=== PATIENT | male | born 1930 | race Caucasian/White ===

== ENCOUNTER 2016-08-30 16:22 | Inpatient (IN) | payer MEDICARE ==
[~2016-08-30] VITALS: Ht 175.3 cm; Wt 104.8 kg
[~2016-08-30 16:22] MED LIST: AMLO10TA2 PO; AMLO5TAB2 PO; ASPI-515 PO; CIPR500T87 PO; OXYBUTYNIN PO
[2016-08-30 16:55] LABS: ASPARTATE AMINO TRANSFERASE 10 U/L (15-37); BLOOD UREA NITROGEN 16 mg/dL (7-18)
[2016-08-30 17:15] LABS: MONOS WITH VACUOLES 1+
[2016-08-30] MEDS ORDERED: BACITRACIN ZINC OINT 500U/GM, 0.9 GM ONE (17:39)
[2016-08-30] MEDS ORDERED: CEFTRIAXONE PMX 1GM/50ML 50 ML IV ONE (20:00)
[2016-08-30] MEDS ORDERED: SODIUM CHLORIDE FLUSH 10ML SYR IVF ONE (20:00)
[2016-08-30] MEDS ORDERED: AZITHROMYCIN 500 MG in SODIUM CHLORIDE 0.9% 250 ML IV ONE (20:00)
[2016-08-30] MEDS ORDERED: CEFTRIAXONE PMX 1GM/50ML 50 ML ONE (20:21)
[2016-08-30 21:15] VITALS: BP 131/77
[2016-08-30] MEDS ORDERED: ONDANSETRON 2MG/ML, 2ML IVP PRN (21:30)
[2016-08-30] MEDS ORDERED: POLYETHYLENE GLYCOL 17 GM PACKET PO PRN (21:30)
[2016-08-30] MEDS ORDERED: ACETAMINOPHEN 325 MG TABLET PO PRN (21:30)
[2016-08-30] MEDS ORDERED: BISACODYL 10 MG SUPP PR PRN (21:30)
[2016-08-30] MEDS: SODIUM CHLORIDE 0.9% 1,000 ML IV SCH (22:52)
[2016-08-30] MEDS: AZITHROMYCIN 500 MG in SODIUM CHLORIDE 0.9% 250 ML IV SCH (22:52)
[2016-08-30] MEDS: HEPARIN 5,000 UNITS/ML, 1ML SQ SCH (22:53)
[2016-08-31 02:50] VITALS: BP 134/68
[2016-08-31] MEDS: HEPARIN 5,000 UNITS/ML, 1ML SQ SCH ×4 (06:22→23:08)
[2016-08-31 07:02] VITALS: BP 124/67
[2016-08-31 07:29] LABS: ASPARTATE AMINO TRANSFERASE 10 U/L (15-37); BLOOD UREA NITROGEN 16 mg/dL (7-18)
[2016-08-31] MEDS ORDERED: AMLODIPINE 5 MG TABLET PO SCH (09:00)
[2016-08-31] MEDS: SENNA/DOCUSATE TABLET PO SCH (10:08)
[2016-08-31] MEDS: LISINOPRIL 10 MG TABLET PO SCH (10:08)
[2016-08-31] MEDS: ASPIRIN 81 MG TABLET EC PO SCH (10:08)
[2016-08-31 13:24] VITALS: BP 114/70
[2016-08-31] MEDS: SODIUM CHLORIDE 0.9% 1,000 ML IV SCH (15:09)
[2016-08-31 19:18] VITALS: BP 113/63
[2016-08-31] MEDS: CEFTRIAXONE PMX 1GM/50ML 50 ML IV SCH (22:08)
[2016-08-31] MEDS: AZITHROMYCIN 500 MG in SODIUM CHLORIDE 0.9% 250 ML IV SCH (23:08)
[2016-09-01 02:36] VITALS: BP 125/77
[2016-09-01] MEDS: HEPARIN 5,000 UNITS/ML, 1ML SQ SCH ×4 (05:43→22:49)
[2016-09-01 06:03] LABS: BLOOD UREA NITROGEN 15 mg/dL (7-18)
[2016-09-01 07:33] VITALS: BP 119/77
[2016-09-01] MEDS: ASPIRIN 81 MG TABLET EC PO SCH (08:32)
[2016-09-01] MEDS: LISINOPRIL 10 MG TABLET PO SCH (08:32)
[2016-09-01] MEDS: SENNA/DOCUSATE TABLET PO SCH (08:33)
[2016-09-01 13:26] VITALS: BP 126/62
[2016-09-01 20:48] VITALS: BP 120/77
[2016-09-01] MEDS: CEFTRIAXONE PMX 1GM/50ML 50 ML IV SCH (21:20)
[2016-09-01] MEDS: AZITHROMYCIN 500 MG in SODIUM CHLORIDE 0.9% 250 ML IV SCH (22:49)
[2016-09-02 03:39] VITALS: BP 133/71
[2016-09-02] MEDS: HEPARIN 5,000 UNITS/ML, 1ML SQ SCH ×2 (06:00→15:52)
[2016-09-02 07:42] VITALS: BP 144/75
[2016-09-02] MEDS: ASPIRIN 81 MG TABLET EC PO SCH (08:50)
[2016-09-02] MEDS: LISINOPRIL 10 MG TABLET PO SCH (08:51)
[2016-09-02] MEDS: SENNA/DOCUSATE TABLET PO SCH (08:51)
[2016-09-02] MEDS ORDERED: CEFDINIR 300 MG CAPSULE PO SCH (09:00)
[2016-09-02] MEDS ORDERED: AZITHROMYCIN 250 MG TABLET PO SCH (09:00)
[2016-09-02] MEDS ORDERED: CEFD300C37 PO ×2 (13:08→17:29)
[2016-09-02] MEDS ORDERED: AZIT250T89 PO ×2 (13:08→17:29)
[2016-09-02] MEDS ORDERED: LISI-167 PO (13:08)
[2016-09-02 17:28] VITALS: BP 139/75
[2016-09-02] MEDS ORDERED: FLUT1AER INH (17:50)
== END 2016-09-02 17:48 | disposition home or self-care (01) | DRG 189 ==
LOC: ED 19:54 → EDIP 20:20 → 3NW 21:29 → 3NE 08-31 18:31
PROVIDERS: ADMIT Internal Medicine; ATTEND Internal Medicine
DX: J96.01 Acute respiratory failure with hypoxia (principal); J18.9 Pneumonia, unspecified organism; J44.0 Chronic obstructive pulmonary disease with (acute) lower respiratory infection; E44.0 Moderate protein-calorie malnutrition; R65.10 Systemic inflammatory response syndrome (SIRS) of non-infectious origin without acute organ dysfunction; D64.9 Anemia, unspecified; E11.9 Type 2 diabetes mellitus without complications; F17.210 Nicotine dependence, cigarettes, uncomplicated; I10 Essential (primary) hypertension; I48.91 Unspecified atrial fibrillation; R29.6 Repeated falls; S09.90XA Unspecified injury of head, initial encounter; S50.319A Abrasion of unspecified elbow, initial encounter; W18.39XA Other fall on same level, initial encounter; Z66 Do not resuscitate; Z79.82 Long term (current) use of aspirin; Z80.9 Family history of malignant neoplasm, unspecified; Z68.34 Body mass index [BMI] 34.0-34.9, adult; Z82.49 Family history of ischemic heart disease and other diseases of the circulatory system; Z86.718 Personal history of other venous thrombosis and embolism; Z86.72 Personal history of thrombophlebitis; Z91.14 Patient's other noncompliance with medication regimen; Z90.49 Acquired absence of other specified parts of digestive tract; Y93.89 Activity, other specified; Y92.89 Other specified places as the place of occurrence of the external cause; Y99.8 Other external cause status
CPT/HCPCS: 36415; 70450; 71020; 72125; 80048; 80053; 81001; 83735; 84100; 85025; 87040; 87070; 87086; 87205; 96365; J0456; J0696; J1644; J7030; J7050

== ENCOUNTER 2016-09-27 16:01 | Inpatient (IN) | payer MEDICARE ==
[~2016-09-27] VITALS: Ht 175.3 cm; Wt 100.9 kg
[~2016-09-27 16:01] MED LIST changes: +AZIT250T89 PO; +CEFD300C37 PO; +FLUT1AER INH; +LISI-167 PO
[2016-09-27] MEDS ORDERED: CEFTRIAXONE PMX 1GM/50ML 50 ML IVPB ONE (17:00)
[2016-09-27] MEDS ORDERED: CEFTRIAXONE PMX 1GM/50ML 50 ML ONE (17:13)
[2016-09-27 17:29] LABS: ASPARTATE AMINO TRANSFERASE 11 U/L (15-37); BLOOD UREA NITROGEN 14 mg/dL (7-18)
[2016-09-27] MEDS ORDERED: SODIUM CHLORIDE 0.9% 1,000 ML IV SCH (17:33)
[2016-09-27] MEDS ORDERED: ONDANSETRON 2MG/ML, 2ML IVPush PRN (18:00)
[2016-09-27] MEDS ORDERED: ONDANSETRON ODT 4 MG PO PRN (18:00)
[2016-09-27 19:50] VITALS: BP 163/72
[2016-09-27] MEDS: ENOXAPARIN 40 MG/0.4 ML SQ SCH (19:56)
[2016-09-28 02:59] VITALS: BP 167/81
[2016-09-28] MEDS ORDERED: PNEUMOCOCCAL 23 VACCINE IM-VACC ONE (03:00)
[2016-09-28 05:21] LABS: BLOOD UREA NITROGEN 12 mg/dL (7-18)
[2016-09-28 05:24] LABS: ASPARTATE AMINO TRANSFERASE 13 U/L (15-37)
[2016-09-28 06:58] VITALS: BP 157/89
[2016-09-28] MEDS: LISINOPRIL 10 MG TABLET PO SCH (09:44)
[2016-09-28] MEDS: ASPIRIN 81 MG TABLET EC PO SCH (09:44)
[2016-09-28 12:10] VITALS: BP 133/74
[2016-09-28 19:32] VITALS: BP 137/82
[2016-09-28] MEDS: ENOXAPARIN 40 MG/0.4 ML SQ SCH (19:42)
[2016-09-29 02:14] VITALS: BP 149/78
[2016-09-29 07:19] VITALS: BP 133/82
[2016-09-29] MEDS: ASPIRIN 81 MG TABLET EC PO SCH (07:20)
[2016-09-29] MEDS: LISINOPRIL 10 MG TABLET PO SCH (07:20)
[2016-09-29 13:14] VITALS: BP 150/74
== END 2016-09-29 14:27 | disposition home or self-care (01) | DRG 884 ==
LOC: ED 17:06 → EDIP 17:07 → ED 17:18 → 3NE 17:48 → DCLOUNGE 09-29 14:15
PROVIDERS: ADMIT Internal Medicine; ATTEND Internal Medicine
DX: R54 Age-related physical debility (principal); J90 Pleural effusion, not elsewhere classified; J98.11 Atelectasis; E44.0 Moderate protein-calorie malnutrition; I10 Essential (primary) hypertension; E11.9 Type 2 diabetes mellitus without complications; I48.91 Unspecified atrial fibrillation; I65.29 Occlusion and stenosis of unspecified carotid artery; J44.9 Chronic obstructive pulmonary disease, unspecified; W19.XXXA Unspecified fall, initial encounter; Z90.49 Acquired absence of other specified parts of digestive tract; Z86.72 Personal history of thrombophlebitis; Z72.0 Tobacco use; Z82.49 Family history of ischemic heart disease and other diseases of the circulatory system; Z68.32 Body mass index [BMI] 32.0-32.9, adult; Z86.718 Personal history of other venous thrombosis and embolism; Z87.01 Personal history of pneumonia (recurrent)
CPT/HCPCS: 36415; 71010; 80053; 81003; 83605; 84145; 85025; 87040; 90732; 93005; 96365; J0696; J1650; J7030

== ENCOUNTER 2016-10-31 08:55 | Emergency (ER) | payer MEDICARE ==
[~2016-10-31] VITALS: Ht 175.3 cm; Wt 100.0 kg
[2016-10-31 09:02] VITALS: BP 117/62
== END 2016-10-31 09:52 | disposition home or self-care (01) ==
LOC: ED 09:31
DX: S01.81XD Laceration without foreign body of other part of head, subsequent encounter (principal); L03.115 Cellulitis of right lower limb; E11.9 Type 2 diabetes mellitus without complications; I48.91 Unspecified atrial fibrillation; I10 Essential (primary) hypertension; J44.9 Chronic obstructive pulmonary disease, unspecified
CPT/HCPCS: 99283

== ENCOUNTER 2017-04-04 18:35 | Inpatient (IN) | payer MEDICARE ==
[~2017-04-04] VITALS: Ht 175.3 cm; Wt 116.4 kg
[2017-04-04 19:24] LABS: HEMATOCRIT 38.8 % (39.2-51.8); HEMOGLOBIN 13.2 g/dL (13.7-18.0); WHITE BLOOD COUNT 14.4 x10^3/uL (3.4-10)
[2017-04-04 19:31] LABS: BLOOD UREA NITROGEN 16 mg/dL (7-18)
[2017-04-04] MEDS ORDERED: CEFTRIAXONE PMX 1GM/50ML 50 ML ONE (20:30)
[2017-04-04] MEDS ORDERED: CEFTRIAXONE PMX 1GM/50ML 50 ML IV ONE (21:00)
[2017-04-04] MEDS ORDERED: AZITHROMYCIN 500 MG in SODIUM CHLORIDE 0.9% 250 ML IV ONE (21:00)
[2017-04-04] MEDS ORDERED: BISACODYL 10 MG SUPP PR PRN (21:30)
[2017-04-04] MEDS ORDERED: DOCUSATE 100 MG CAPSULE PO PRN (21:30)
[2017-04-04] MEDS ORDERED: POLYETHYLENE GLYCOL 17 GM PACKET PO PRN (21:30)
[2017-04-04] MEDS ORDERED: HYDROcodone/APAP 5/325 TABLET PO PRN (21:30)
[2017-04-04] MEDS ORDERED: FUROSEMIDE 40 MG/4 ML IV ONE (21:30)
[2017-04-04] MEDS ORDERED: ONDANSETRON 2MG/ML, 2ML IVPush PRN (21:30)
[2017-04-04] MEDS ORDERED: LABETALOL 5MG/ML, 20ML IVPush PRN (21:30)
[2017-04-04] MEDS: CEFTRIAXONE PMX 1GM/50ML 50 ML IV SCH (21:30)
[2017-04-04] MEDS ORDERED: morphine SULFATE 10 MG/ML, 1ML IVPush PRN (21:30)
[2017-04-04] MEDS ORDERED: ACETAMINOPHEN 325 MG TABLET PO PRN (21:30)
[2017-04-04] MEDS ORDERED: FUROSEMIDE 40 MG/4 ML ONE (21:52)
[2017-04-04 22:58] VITALS: BP 138/89
[2017-04-05] MEDS: DOXYCYCLINE 100 MG in DEXTROSE 5% 250 ML IV SCH ×3 (00:26→23:57)
[2017-04-05] MEDS: ENOXAPARIN 40 MG/0.4 ML SQ SCH ×2 (00:27→20:43)
[2017-04-05 03:17] VITALS: BP 145/69
[2017-04-05 05:34] LABS: HEMATOCRIT 38.3 % (39.2-51.8); HEMOGLOBIN 13.2 g/dL (13.7-18.0); WHITE BLOOD COUNT 12.3 x10^3/uL (3.4-10)
[2017-04-05 05:45] LABS: BLOOD UREA NITROGEN 12 mg/dL (7-18)
[2017-04-05] MEDS: ASPIRIN 81 MG TABLET EC PO SCH (08:58)
[2017-04-05] MEDS: GUAIFENESIN ER 600 MG TABLET PO SCH ×2 (08:58→20:43)
[2017-04-05] MEDS: AMLODIPINE 5 MG TABLET PO SCH (08:58)
[2017-04-05] MEDS: SODIUM CHLORIDE FLUSH 10ML SYR IVF SCH ×2 (09:04→20:43)
[2017-04-05 13:07] VITALS: BP 117/68
[2017-04-05 19:45] VITALS: BP 118/61
[2017-04-05] MEDS: CEFTRIAXONE PMX 1GM/50ML 50 ML IV SCH (20:43)
[2017-04-06 01:47] VITALS: BP 118/64
[2017-04-06 07:45] VITALS: BP 117/65
[2017-04-06] MEDS: SODIUM CHLORIDE FLUSH 10ML SYR IVF SCH ×2 (09:13→21:05)
[2017-04-06] MEDS: AMLODIPINE 5 MG TABLET PO SCH (09:13)
[2017-04-06] MEDS: ASPIRIN 81 MG TABLET EC PO SCH (09:13)
[2017-04-06] MEDS: GUAIFENESIN ER 600 MG TABLET PO SCH ×3 (09:13→21:03)
[2017-04-06] MEDS ORDERED: ALBUTEROL/IPRATROPIUM 2.5MG/0.5MG, 3 ML ONE (09:23)
[2017-04-06] MEDS: DOXYCYCLINE 100 MG in DEXTROSE 5% 250 ML IV SCH (13:17)
[2017-04-06 13:55] VITALS: BP 117/62
[2017-04-06] MEDS: ALBUTEROL/IPRATROPIUM 2.5MG/0.5MG, 3 ML NPPB SCH ×3 (13:55→20:00)
[2017-04-06] MEDS: ENOXAPARIN 40 MG/0.4 ML SQ SCH (21:04)
[2017-04-06] MEDS: CEFTRIAXONE PMX 1GM/50ML 50 ML IV SCH (21:04)
[2017-04-06 21:17] VITALS: BP 115/70
[2017-04-07] MEDS: DOXYCYCLINE 100 MG in DEXTROSE 5% 250 ML IV SCH ×2 (00:19→12:35)
[2017-04-07] MEDS: GUAIFENESIN ER 600 MG TABLET PO SCH ×4 (05:31→21:42)
[2017-04-07 05:37] VITALS: BP 124/63
[2017-04-07 05:56] LABS: HEMATOCRIT 36.5 % (39.2-51.8); HEMOGLOBIN 12.5 g/dL (13.7-18.0); WHITE BLOOD COUNT 9.2 x10^3/uL (3.4-10)
[2017-04-07 06:22] LABS: ASPARTATE AMINO TRANSFERASE 9 U/L (15-37); BLOOD UREA NITROGEN 13 mg/dL (7-18)
[2017-04-07] MEDS: ALBUTEROL/IPRATROPIUM 2.5MG/0.5MG, 3 ML NPPB SCH (07:00)
[2017-04-07 08:52] VITALS: BP 125/61
[2017-04-07] MEDS: SODIUM CHLORIDE FLUSH 10ML SYR IVF SCH ×2 (09:00→21:43)
[2017-04-07] MEDS: ASPIRIN 81 MG TABLET EC PO SCH (09:43)
[2017-04-07] MEDS: AMLODIPINE 5 MG TABLET PO SCH (09:43)
[2017-04-07] MEDS ORDERED: ALBUTEROL/IPRATROPIUM 2.5MG/0.5MG, 3 ML NPPB PRN (11:00)
[2017-04-07 15:15] VITALS: BP 116/64
[2017-04-07] MEDS ORDERED: OMNIPAQUE 350 MG/ML, 100ML BOTTLE ONE (18:01)
[2017-04-07 18:53] VITALS: BP 144/58
[2017-04-07] MEDS: ENOXAPARIN 40 MG/0.4 ML SQ SCH (21:42)
[2017-04-07] MEDS: CEFTRIAXONE PMX 1GM/50ML 50 ML IV SCH (21:42)
[2017-04-08] MEDS: DOXYCYCLINE 100 MG in DEXTROSE 5% 250 ML IV SCH ×2 (00:24→12:35)
[2017-04-08 00:45] VITALS: BP 136/66
[2017-04-08] MEDS: GUAIFENESIN ER 600 MG TABLET PO SCH ×2 (03:22→08:52)
[2017-04-08] MEDS ORDERED: ONDA4TAB13 SL (05:23)
[2017-04-08] MEDS ORDERED: OXYC1TAB7 PO (05:25)
[2017-04-08 07:20] VITALS: BP 125/66
[2017-04-08] MEDS: AMLODIPINE 5 MG TABLET PO SCH (08:52)
[2017-04-08] MEDS: ASPIRIN 81 MG TABLET EC PO SCH (08:52)
[2017-04-08] MEDS: SODIUM CHLORIDE FLUSH 10ML SYR IVF SCH (09:00)
[2017-04-08] MEDS ORDERED: POLY17PO5 PO (10:05)
[2017-04-08] MEDS ORDERED: IPRA3AMP NPPB (10:05)
[2017-04-08] MEDS ORDERED: GUAI600T31 PO (10:05)
[2017-04-08] MEDS ORDERED: POTA20TA6 PO (10:44)
[2017-04-08] MEDS ORDERED: FURO40TA6 PO (10:44)
[2017-04-08] MEDS ORDERED: DOXY100C15 PO (10:50)
[2017-04-08] MEDS ORDERED: CEFD300C37 PO (10:50)
[2017-04-08 12:54] VITALS: BP 138/76
== END 2017-04-08 15:12 | disposition home or self-care (01) | DRG 871 ==
LOC: ED 21:08 → EDIP 21:19 → 4NOR 22:44
PROVIDERS: ADMIT Internal Medicine; ATTEND Internal Medicine
PROC: 0HBRXZZ Excision of Toe Nail, External Approach (ICD-10-PCS; principal; 2017-04-05)
PROC: 0HBRXZZ Excision of Toe Nail, External Approach (ICD-10-PCS; 2017-04-05)
PROC: 0HBRXZZ Excision of Toe Nail, External Approach (ICD-10-PCS; 2017-04-05)
PROC: 0HBRXZZ Excision of Toe Nail, External Approach (ICD-10-PCS; 2017-04-05)
PROC: 0HBRXZZ Excision of Toe Nail, External Approach (ICD-10-PCS; 2017-04-05)
PROC: 0HBRXZZ Excision of Toe Nail, External Approach (ICD-10-PCS; 2017-04-05)
PROC: 0HBRXZZ Excision of Toe Nail, External Approach (ICD-10-PCS; 2017-04-05)
PROC: 0HBRXZZ Excision of Toe Nail, External Approach (ICD-10-PCS; 2017-04-05)
PROC: 0HBRXZZ Excision of Toe Nail, External Approach (ICD-10-PCS; 2017-04-05)
PROC: 0HBRXZZ Excision of Toe Nail, External Approach (ICD-10-PCS; 2017-04-05)
DX: A41.9 Sepsis, unspecified organism (principal); J15.9 Unspecified bacterial pneumonia; J96.00 Acute respiratory failure, unspecified whether with hypoxia or hypercapnia; E43 Unspecified severe protein-calorie malnutrition; E11.51 Type 2 diabetes mellitus with diabetic peripheral angiopathy without gangrene; I11.0 Hypertensive heart disease with heart failure; E11.65 Type 2 diabetes mellitus with hyperglycemia; I50.30 Unspecified diastolic (congestive) heart failure; I48.91 Unspecified atrial fibrillation; D64.9 Anemia, unspecified; B35.1 Tinea unguium; J44.0 Chronic obstructive pulmonary disease with (acute) lower respiratory infection; Z68.37 Body mass index [BMI] 37.0-37.9, adult; E66.9 Obesity, unspecified; F17.200 Nicotine dependence, unspecified, uncomplicated; J32.9 Chronic sinusitis, unspecified; R29.6 Repeated falls; R29.810 Facial weakness; Z66 Do not resuscitate; Z82.49 Family history of ischemic heart disease and other diseases of the circulatory system; Z86.718 Personal history of other venous thrombosis and embolism; Z90.49 Acquired absence of other specified parts of digestive tract
CPT/HCPCS: 36415; 70450; 71010; 71275; 80048; 80053; 81001; 82040; 83605; 83735; 84100; 85025; 87040; 87070; 87086; 87205; 93005; 93306; 93970; 94640; 96365; 96375; J0456; J0696; J1650; J1940; J7060; J7620; Q9967; J7050

== ENCOUNTER 2017-05-28 00:29 | Emergency (ER) | payer MEDICARE ==
[~2017-05-28] VITALS: Ht 175.3 cm; Wt 100.0 kg
[~2017-05-28 00:29] MED LIST changes: +DOXY100C15 PO; +FURO40TA6 PO; +GUAI600T31 PO; +IPRA3AMP NPPB; +ONDA4TAB13 SL; +OXYC1TAB7 PO; +POLY17PO5 PO; +POTA20TA6 PO
[2017-05-28 00:32] VITALS: BP 149/88
[2017-05-28] MEDS ORDERED: SODIUM CHLORIDE 0.9% 1,000 ML IV ONE (00:37)
[2017-05-28] MEDS ORDERED: ONDANSETRON 2MG/ML, 2ML ONE (00:50)
[2017-05-28] MEDS ORDERED: MORPHINE SULFATE 4 MG/ML, 1ML ONE (00:50)
[2017-05-28 00:57] LABS: BASOPHILS # (AUTO) 0.05 x10^3/uL (0-0.1); BASOPHILS % (AUTO) 1 % (0-1); EOSINOPHILS % (AUTO) 7 % (1-7); LYMPHOCYTES # (AUTO) 1.93 x10^3/uL (1-3.4); LYMPHOCYTES % (AUTO) 23 % (22-44); MD NO; MEAN CORPUSCULAR HEMOGLOBIN 30.9 pg (27.5-34.5); MEAN CORPUSCULAR HGB CONC 33.8 g/dL (33.2-36.2); MEAN CORPUSCULAR VOLUME 91.4 fL (81-97); MONOCYTES # (AUTO) 0.78 x10^3/uL (0.2-0.8); MONOCYTES % (AUTO) 9 % (2-9); NEUTROPHILS # (AUTO) 5.18 x10^3/uL (1.8-6.8); NEUTROPHILS % (AUTO) 61 % (42-75); PLATELET COUNT 281 x10^3/uL (130-400); RED BLOOD COUNT 4.56 x10^6/uL (4.38-5.82); RED CELL DISTRIBUTION WIDTH 16.5 % (9.4-14.8)
[2017-05-28] MEDS ORDERED: SODIUM CHLORIDE FLUSH 10ML SYR IVF ONE (01:00)
[2017-05-28] MEDS ORDERED: ONDANSETRON 2MG/ML, 2ML IVPush ONE (01:00)
[2017-05-28] MEDS ORDERED: MORPHINE SULFATE 4 MG/ML, 1ML IVPush PRN (01:00)
[2017-05-28 01:03] LABS: INTERNATIONAL NORMALIZED RATIO 0.92 (0.93-1.1); PROTHROMBIN TIME 9.6 Seconds (9.6-11.5)
[2017-05-28 01:05] LABS: ALBUMIN 3.1 g/dL (3.4-5.0); ANION GAP 6 mmol/L (5-15); CALCIUM 8.2 mg/dL (8.5-10.1); CHLORIDE 107 mmol/L (98-107); CREATININE 1.05 mg/dL (0.7-1.3)
[2017-05-28 01:40] LABS: CULTURE INDICATED? YES; MICROSCOPIC INDICATED
== END 2017-05-29 05:12 ==
LOC: ED 00:41
DX: S27.2XXA Traumatic hemopneumothorax, initial encounter (principal); S22.42XA Multiple fractures of ribs, left side, initial encounter for closed fracture; E11.9 Type 2 diabetes mellitus without complications; I25.10 Atherosclerotic heart disease of native coronary artery without angina pectoris; W01.0XXA Fall on same level from slipping, tripping and stumbling without subsequent striking against object, initial encounter; Y93.01 Activity, walking, marching and hiking; Y92.098 Other place in other non-institutional residence as the place of occurrence of the external cause; Y99.8 Other external cause status
CPT/HCPCS: 36415; 71260; 74177; 80048; 81001; 82040; 85025; 85610; 85730; 87086; 96361; 96374; 96375; 99285; J2405; J7030

== ENCOUNTER 2017-07-30 01:42 | Inpatient (IN) | payer MEDICARE ==
[~2017-07-30] VITALS: Ht 175.3 cm; Wt 101.7 kg
[2017-07-30] MEDS ORDERED: DILTIAZEM 5 MG/ML, 5ML ONE (01:46)
[2017-07-30] MEDS ORDERED: AMLO10TA2 PO (01:58)
[2017-07-30] MEDS ORDERED: DILTIAZEM 5 MG/ML, 5ML IVPush ONE ×2 (02:00→03:00)
[2017-07-30 02:15] LABS: BASOPHILS # (AUTO) 0.01 x10^3/uL (0-0.1); BASOPHILS % (AUTO) 0 % (0-1); EOSINOPHILS # (AUTO) 0.04 x10^3/uL (0-0.4); EOSINOPHILS % (AUTO) 0 % (1-7); LYMPHOCYTES # (AUTO) 1.34 x10^3/uL (1-3.4); LYMPHOCYTES % (AUTO) 12 % (22-44); MD NO; MEAN CORPUSCULAR HEMOGLOBIN 29.7 pg (27.5-34.5); MEAN CORPUSCULAR HGB CONC 32.8 g/dL (33.2-36.2); MEAN CORPUSCULAR VOLUME 90.6 fL (81-97); MEAN PLATELET VOLUME 8.1 fL (7.4-10.4); MONOCYTES # (AUTO) 1.25 x10^3/uL (0.2-0.8); MONOCYTES % (AUTO) 11 % (2-9); NEUTROPHILS # (AUTO) 8.53 x10^3/uL (1.8-6.8); NEUTROPHILS % (AUTO) 76 % (42-75); PLATELET COUNT 425 x10^3/uL (130-400); RED BLOOD COUNT 4.46 x10^6/uL (4.38-5.82); RED CELL DISTRIBUTION WIDTH 15.5 % (9.4-14.8)
[2017-07-30 02:29] LABS: ALANINE AMINOTRANSFERASE 25 U/L (12-78); ALBUMIN 2.3 g/dL (3.4-5.0); ANION GAP 7 mmol/L (5-15); CALCIUM 8.3 mg/dL (8.5-10.1); CHLORIDE 111 mmol/L (98-107); CREATININE 1.17 mg/dL (0.7-1.3)
[2017-07-30 02:33] LABS: ALKALINE PHOSPHATASE 146 U/L (45-117); BILIRUBIN,TOTAL 0.8 mg/dL (0.2-1.0); TOTAL PROTEIN 7.1 g/dL (6.4-8.2); TROPONIN I < 0.015 ng/mL (0.000-0.045)
[2017-07-30] MEDS ORDERED: ONDANSETRON 2MG/ML, 2ML IVPush PRN ×2 (03:00→03:30)
[2017-07-30] MEDS ORDERED: DILTIAZEM 125 MG in SODIUM CHLORIDE 0.9% 100 ML IV PRN (03:00)
[2017-07-30] MEDS ORDERED: DILTIAZEM 125 MG in SODIUM CHLORIDE 0.9% 100 ML IV SCH (03:30)
[2017-07-30] MEDS ORDERED: BISACODYL 10 MG SUPP PR PRN (03:30)
[2017-07-30] MEDS ORDERED: HEPARIN 5,000 UNITS/ML, 1ML SQ SCH (03:30)
[2017-07-30] MEDS ORDERED: DO NOT GIVE XX PRN (03:30)
[2017-07-30] MEDS ORDERED: ACETAMINOPHEN 325 MG TABLET PO PRN (03:30)
[2017-07-30] MEDS ORDERED: OXYcodone IR 5MG TABLET PO PRN (03:30)
[2017-07-30] MEDS ORDERED: ENALAPRILAT 1.25 MG/ML, 2ML IVPush PRN (03:30)
[2017-07-30] MEDS ORDERED: HEPARIN wt. based STROKE protocol IV PRN (03:30)
[2017-07-30] MEDS ORDERED: POLYETHYLENE GLYCOL 17 GM PACKET PO PRN (03:30)
[2017-07-30] MEDS ORDERED: hydrALAzine 20 MG/ML, 1ML IVPush PRN (03:30)
[2017-07-30] MEDS ORDERED: morphine SULFATE 10 MG/ML, 1ML IVPush PRN (03:30)
[2017-07-30 04:13] VITALS: BP 116/70
[2017-07-30] MEDS: CEFTRIAXONE 2 GM in DEXTROSE 5% 50 ML IVPB SCH (05:11)
[2017-07-30] MEDS: HEPARIN 25,000 UNITS/500ML PMX 500 ML IV PRN ×2 (05:19→20:18)
[2017-07-30 05:46] LABS: HEMOGLOBIN A1C 5.7 % (4.2-6.3)
[2017-07-30 05:50] LABS: FREE T4 (FREE THYROXINE) 1.34 ng/dL (0.76-1.46); THYROID STIMULATING HORMONE 2.29 mIU/L (0.358-3.740)
[2017-07-30 07:20] LABS: TROPONIN I < 0.015 ng/mL (0.000-0.045)
[2017-07-30 07:35] VITALS: BP 117/64
[2017-07-30] MEDS ORDERED: LIDOCAINE 1%, 20ML ONE (07:36)
[2017-07-30] MEDS: SENNA/DOCUSATE TABLET PO SCH (07:44)
[2017-07-30 08:14] LABS: MICROSCOPIC INDICATED
[2017-07-30 08:50] LABS: CULTURE INDICATED? NO
[2017-07-30] MEDS: DOXYCYCLINE 100MG TABLET PO SCH ×2 (09:52→20:16)
[2017-07-30 10:58] LABS: TROPONIN I < 0.015 ng/mL (0.000-0.045)
[2017-07-30 11:42] LABS: CLOSTRIDIUM DIFFICILE ANTIGEN NEGATIVE; CLOSTRIDIUM DIFFICILE TOXIN NEGATIVE (Negative)
[2017-07-30] MEDS: METOPROLOL TARTRATE 25 MG TABLET PO SCH ×2 (12:33→18:10)
[2017-07-30 14:40] VITALS: BP 104/65
[2017-07-30] MEDS: DILTIAZEM 125 MG in SODIUM CHLORIDE 0.9% 100 ML IV SCH (16:34)
[2017-07-30 18:10] VITALS: BP 100/63
[2017-07-30 20:15] VITALS: BP 103/70
[2017-07-31] MEDS: METOPROLOL TARTRATE 25 MG TABLET PO SCH ×5 (01:13→22:54)
[2017-07-31 01:14] VITALS: BP 95/64
[2017-07-31] MEDS: DILTIAZEM 125 MG in SODIUM CHLORIDE 0.9% 100 ML IV SCH ×2 (02:00→16:32)
[2017-07-31] MEDS: CEFTRIAXONE 2 GM in DEXTROSE 5% 50 ML IVPB SCH (05:39)
[2017-07-31 07:15] LABS: BASOPHILS # (AUTO) 0.05 x10^3/uL (0-0.1); BASOPHILS % (AUTO) 1 % (0-1); EOSINOPHILS # (AUTO) 0.12 x10^3/uL (0-0.4); EOSINOPHILS % (AUTO) 1 % (1-7); LYMPHOCYTES # (AUTO) 1.09 x10^3/uL (1-3.4); LYMPHOCYTES % (AUTO) 13 % (22-44); MD NO; MEAN CORPUSCULAR HEMOGLOBIN 30.3 pg (27.5-34.5); MEAN CORPUSCULAR HGB CONC 32.9 g/dL (33.2-36.2); MEAN PLATELET VOLUME 8.3 fL (7.4-10.4); MONOCYTES # (AUTO) 0.82 x10^3/uL (0.2-0.8); MONOCYTES % (AUTO) 10 % (2-9); NEUTROPHILS # (AUTO) 6.43 x10^3/uL (1.8-6.8); NEUTROPHILS % (AUTO) 76 % (42-75); PLATELET COUNT 396 x10^3/uL (130-400); RED BLOOD COUNT 4.03 x10^6/uL (4.38-5.82)
[2017-07-31 07:26] LABS: ANION GAP 7 mmol/L (5-15); CALCIUM 7.7 mg/dL (8.5-10.1); CHLORIDE 110 mmol/L (98-107); CHOLESTEROL, TOTAL 120 mg/dL (140-239); TRIGLYCERIDES 124 mg/dL (50-200); VLDL CHOLESTEROL 25 mg/dL (0-25)
[2017-07-31 07:29] LABS: CREATININE 0.95 mg/dL (0.7-1.3)
[2017-07-31 07:30] LABS: ALANINE AMINOTRANSFERASE 21 U/L (12-78); ALKALINE PHOSPHATASE 126 U/L (45-117); BILIRUBIN,TOTAL 0.4 mg/dL (0.2-1.0); HDL CHOL % 20 % (26-37); HDL CHOLESTEROL (DIRECT) 24 mg/dL (40-60); LDL CHOLESTEROL,CALCULATED 71 mg/dL (54-169); TOTAL PROTEIN 6.3 g/dL (6.4-8.2)
[2017-07-31] MEDS: DOXYCYCLINE 100MG TABLET PO SCH ×2 (08:24→21:18)
[2017-07-31] MEDS: SENNA/DOCUSATE TABLET PO SCH (08:25)
[2017-07-31 08:28] VITALS: BP 104/63
[2017-07-31] MEDS ORDERED: DIGOXIN 0.25 MG/ML, 2ML IVPush ONE ×3 (09:30→19:40)
[2017-07-31] MEDS ORDERED: OMNIPAQUE 350 MG/ML, 100ML BOTTLE ONE (13:32)
[2017-07-31] MEDS ORDERED: DIGOXIN 0.25 MG/ML, 2ML ONE (13:35)
[2017-07-31] MEDS: HEPARIN 25,000 UNITS/500ML PMX 500 ML IV PRN (13:42)
[2017-07-31 13:45] VITALS: BP 124/92
[2017-07-31 16:46] VITALS: BP 112/79
[2017-07-31 21:11] VITALS: BP 125/75
[2017-07-31 22:54] VITALS: BP 122/83
[2017-08-01] VITALS (7 sets, daily range): BP systolic 99–139; BP diastolic 60–96
[2017-08-01] MEDS: HEPARIN 25,000 UNITS/500ML PMX 500 ML IV PRN ×2 (03:00→16:15)
[2017-08-01] MEDS ORDERED: DILTIAZEM 125 MG in SODIUM CHLORIDE 0.9% 100 ML IV SCH (03:30)
[2017-08-01] MEDS: CEFTRIAXONE 2 GM in DEXTROSE 5% 50 ML IVPB SCH (04:40)
[2017-08-01] MEDS: METOPROLOL TARTRATE 25 MG TABLET PO SCH ×4 (04:40→22:06)
[2017-08-01 05:01] LABS: BASOPHILS # (AUTO) 0.04 x10^3/uL (0-0.1); BASOPHILS % (AUTO) 1 % (0-1); EOSINOPHILS # (AUTO) 0.19 x10^3/uL (0-0.4); EOSINOPHILS % (AUTO) 3 % (1-7); LYMPHOCYTES # (AUTO) 0.96 x10^3/uL (1-3.4); LYMPHOCYTES % (AUTO) 13 % (22-44); MD NO; MEAN CORPUSCULAR HEMOGLOBIN 32.3 pg (27.5-34.5); MEAN CORPUSCULAR HGB CONC 34.3 g/dL (33.2-36.2); MEAN PLATELET VOLUME 8.5 fL (7.4-10.4); MONOCYTES # (AUTO) 0.78 x10^3/uL (0.2-0.8); MONOCYTES % (AUTO) 10 % (2-9); NEUTROPHILS # (AUTO) 5.63 x10^3/uL (1.8-6.8); NEUTROPHILS % (AUTO) 74 % (42-75); PLATELET COUNT 347 x10^3/uL (130-400); RED BLOOD COUNT 3.82 x10^6/uL (4.38-5.82); RED CELL DISTRIBUTION WIDTH 15.5 % (9.4-14.8)
[2017-08-01 05:10] LABS: ANION GAP 4 mmol/L (5-15); CALCIUM 7.9 mg/dL (8.5-10.1); CHLORIDE 109 mmol/L (98-107); CREATININE 0.91 mg/dL (0.7-1.3)
[2017-08-01] MEDS: DOXYCYCLINE 100MG TABLET PO SCH ×2 (08:36→22:06)
[2017-08-01] MEDS: DIGOXIN 0.125 MG TABLET PO SCH (08:36)
[2017-08-01] MEDS: SENNA/DOCUSATE TABLET PO SCH (08:37)
[2017-08-02 03:06] VITALS: BP 115/73
[2017-08-02] MEDS: METOPROLOL TARTRATE 25 MG TABLET PO SCH ×3 (03:10→21:44)
[2017-08-02] MEDS: HEPARIN 25,000 UNITS/500ML PMX 500 ML IV PRN ×2 (03:11→14:30)
[2017-08-02] MEDS: CEFTRIAXONE 2 GM in DEXTROSE 5% 50 ML IVPB SCH (03:12)
[2017-08-02 07:15] VITALS: BP 110/61
[2017-08-02] MEDS: DOXYCYCLINE 100MG TABLET PO SCH ×2 (08:10→21:44)
[2017-08-02] MEDS: DIGOXIN 0.125 MG TABLET PO SCH (08:10)
[2017-08-02] MEDS: SENNA/DOCUSATE TABLET PO SCH (08:11)
[2017-08-02] MEDS ORDERED: DILTIAZEM 5 MG/ML, 5ML IVPush ONE ×2 (09:00→10:00)
[2017-08-02 13:03] VITALS: BP 124/77
[2017-08-02 13:35] VITALS: BP 119/72
[2017-08-02] MEDS ORDERED: AMIODARONE 900 MG in DEXTROSE 5% 482 ML IV PRN (15:30)
[2017-08-02] MEDS ORDERED: AMIODARONE 150 MG in DEXTROSE 5% 100 ML IV ONE (15:30)
[2017-08-02] MEDS: FILTER 0.22 MICRON FOR AMIODARONE IV PRN (16:11)
[2017-08-02 20:08] VITALS: BP 117/75
[2017-08-03] MEDS: HEPARIN 25,000 UNITS/500ML PMX 500 ML IV PRN ×2 (01:38→13:01)
[2017-08-03] MEDS ORDERED: DILTIAZEM 125 MG in SODIUM CHLORIDE 0.9% 100 ML IV SCH (03:30)
[2017-08-03] MEDS: CEFTRIAXONE 2 GM in DEXTROSE 5% 50 ML IVPB SCH (05:19)
[2017-08-03 05:30] VITALS: BP 128/86
[2017-08-03 07:25] VITALS: BP 154/74
[2017-08-03 07:50] VITALS: BP 121/69
[2017-08-03] MEDS: DOXYCYCLINE 100MG TABLET PO SCH ×2 (07:56→20:36)
[2017-08-03] MEDS: METOPROLOL TARTRATE 25 MG TABLET PO SCH ×2 (07:57→20:36)
[2017-08-03] MEDS: SENNA/DOCUSATE TABLET PO SCH (07:57)
[2017-08-03] MEDS: DIGOXIN 0.125 MG TABLET PO SCH (07:57)
[2017-08-03] MEDS: FUROSEMIDE 40 MG TABLET PO SCH (10:07)
[2017-08-03] MEDS: AMIODARONE 450 MG in DEXTROSE 5% 241 ML IV PRN (13:14)
[2017-08-03 15:30] VITALS: BP 141/77
[2017-08-03] MEDS ORDERED: PROPOFOL 10 MG/ML, 20ML ONE (16:10)
[2017-08-03 18:39] VITALS: BP 136/72
[2017-08-04] MEDS: HEPARIN 25,000 UNITS/500ML PMX 500 ML IV PRN (00:13)
[2017-08-04 00:21] VITALS: BP 144/74
[2017-08-04] MEDS: AMIODARONE 450 MG in DEXTROSE 5% 241 ML IV PRN (02:42)
[2017-08-04] MEDS: FILTER 0.22 MICRON FOR AMIODARONE IV PRN (02:42)
[2017-08-04] MEDS: CEFTRIAXONE 2 GM in DEXTROSE 5% 50 ML IVPB SCH (05:16)
[2017-08-04 05:45] LABS: ANION GAP 6 mmol/L (5-15); CALCIUM 8.3 mg/dL (8.5-10.1); CHLORIDE 104 mmol/L (98-107); CREATININE 0.91 mg/dL (0.7-1.3)
[2017-08-04 09:10] VITALS: BP 141/79
[2017-08-04] MEDS: SENNA/DOCUSATE TABLET PO SCH (09:11)
[2017-08-04] MEDS: DIGOXIN 0.125 MG TABLET PO SCH (09:12)
[2017-08-04] MEDS: DOXYCYCLINE 100MG TABLET PO SCH ×2 (09:12→20:21)
[2017-08-04] MEDS: FUROSEMIDE 40 MG TABLET PO SCH (09:12)
[2017-08-04] MEDS: METOPROLOL TARTRATE 25 MG TABLET PO SCH ×2 (09:12→20:21)
[2017-08-04] MEDS: ENOXAPARIN 60 MG/0.6 ML SQ SCH ×2 (10:46→22:15)
[2017-08-04] MEDS: AMIODARONE 200 MG TABLET PO SCH (10:46)
[2017-08-04 14:48] VITALS: BP 133/68
[2017-08-04 20:20] VITALS: BP 147/80
[2017-08-05 01:15] VITALS: BP 130/63
[2017-08-05] MEDS: CEFTRIAXONE 2 GM in DEXTROSE 5% 50 ML IVPB SCH (05:14)
[2017-08-05 08:00] VITALS: BP 132/63
[2017-08-05] MEDS: SENNA/DOCUSATE TABLET PO SCH (08:02)
[2017-08-05] MEDS: METOPROLOL TARTRATE 25 MG TABLET PO SCH ×2 (08:05→21:35)
[2017-08-05] MEDS: AMIODARONE 200 MG TABLET PO SCH (08:05)
[2017-08-05] MEDS: DIGOXIN 0.125 MG TABLET PO SCH (08:05)
[2017-08-05] MEDS: FUROSEMIDE 40 MG TABLET PO SCH (08:05)
[2017-08-05] MEDS: DOXYCYCLINE 100MG TABLET PO SCH (08:05)
[2017-08-05] MEDS: ENOXAPARIN 60 MG/0.6 ML SQ SCH (10:55)
[2017-08-05 14:00] VITALS: BP 139/70
[2017-08-05 18:46] VITALS: BP 146/64
[2017-08-05] MEDS ORDERED: DOXYCYCLINE 100MG TABLET PO SCH (21:00)
[2017-08-05] MEDS: APIXABAN 5 MG TABLET PO SCH (21:37)
[2017-08-06 00:39] VITALS: BP 154/71
[2017-08-06 07:06] VITALS: BP 128/73
[2017-08-06] MEDS: SENNA/DOCUSATE TABLET PO SCH (09:51)
[2017-08-06] MEDS: AMIODARONE 200 MG TABLET PO SCH (09:51)
[2017-08-06] MEDS: FUROSEMIDE 40 MG TABLET PO SCH (09:51)
[2017-08-06] MEDS: APIXABAN 5 MG TABLET PO SCH (09:52)
[2017-08-06] MEDS: METOPROLOL TARTRATE 25 MG TABLET PO SCH (09:52)
[2017-08-06] MEDS ORDERED: APIX5TAB PO (11:45)
[2017-08-06] MEDS ORDERED: AMIO200T42 PO (11:45)
[2017-08-06] MEDS ORDERED: ACET325T14 PO (11:45)
[2017-08-06] MEDS ORDERED: SENN1TAB7 PO (11:45)
[2017-08-06] MEDS ORDERED: FURO40TA6 PO (11:45)
[2017-08-06] MEDS ORDERED: METO25TA35 PO (11:45)
[2017-08-06 15:16] VITALS: BP 138/77
== END 2017-08-06 15:40 | DRG 308 ==
LOC: ED 02:03 → EDIP 03:24 → 5SO 03:58
PROVIDERS: ADMIT Internal Medicine; ATTEND Family Medicine
PROC: 0W9B3ZZ Drainage of Left Pleural Cavity, Percutaneous Approach (ICD-10-PCS; 2017-07-30)
PROC: B24BZZ4 Ultrasonography of Heart with Aorta, Transesophageal (ICD-10-PCS; 2017-08-03)
PROC: 5A2204Z Restoration of Cardiac Rhythm, Single (ICD-10-PCS; principal; 2017-08-03 12:30)
DX: I48.91 Unspecified atrial fibrillation (principal); J18.9 Pneumonia, unspecified organism; E44.0 Moderate protein-calorie malnutrition; D68.69 Other thrombophilia; E11.51 Type 2 diabetes mellitus with diabetic peripheral angiopathy without gangrene; I82.622 Acute embolism and thrombosis of deep veins of left upper extremity; I11.0 Hypertensive heart disease with heart failure; I82.A12 Acute embolism and thrombosis of left axillary vein; I31.3 Pericardial effusion (noninflammatory); I50.810 Right heart failure, unspecified; I65.22 Occlusion and stenosis of left carotid artery; F12.10 Cannabis abuse, uncomplicated; J44.9 Chronic obstructive pulmonary disease, unspecified; I35.8 Other nonrheumatic aortic valve disorders; Z66 Do not resuscitate; Z79.899 Other long term (current) drug therapy; Z82.49 Family history of ischemic heart disease and other diseases of the circulatory system; Z86.72 Personal history of thrombophlebitis; Z86.73 Personal history of transient ischemic attack (TIA), and cerebral infarction without residual deficits; Z80.9 Family history of malignant neoplasm, unspecified; Z68.33 Body mass index [BMI] 33.0-33.9, adult
CPT/HCPCS: 36415; 71045; 71275; 80048; 80053; 80061; 80162; 81001; 82945; 83036; 83615; 83735; 83880; 84157; 84439; 84443; 84484; 85025; 85520; 87040; 87070; 87205; 87324; 88112; 88305; 89051; 92960; 93005; 93306; 93312; 93321; 93325; 96374; 96376; J0696; J1644; J1650; J2704; J3490; Q9967; J0282; J1160; J7060

== ENCOUNTER 2017-12-22 15:32 | Emergency (ER) | payer MEDICARE ==
[~2017-12-22] VITALS: Ht 175.3 cm; Wt 105.0 kg
[~2017-12-22 15:32] MED LIST changes: +ACET325T14 PO; +AMIO200T42 PO; +APIX5TAB PO; -IPRA3AMP NPPB; +IPRA3AMP30 NPPB; +METO25TA35 PO; +SENN1TAB7 PO
[2017-12-22 16:08] LABS: BASOPHILS # (AUTO) 0.06 x10^3/uL (0-0.1); BASOPHILS % (AUTO) 1 % (0-1); EOSINOPHILS # (AUTO) 0.37 x10^3/uL (0-0.4); EOSINOPHILS % (AUTO) 4 % (1-7); LYMPHOCYTES % (AUTO) 12 % (22-44); MD NO; MEAN CORPUSCULAR VOLUME 91.5 fL (81-97); MEAN PLATELET VOLUME 8.6 fL (7.4-10.4); MONOCYTES % (AUTO) 7 % (2-9); NEUTROPHILS # (AUTO) 7.64 x10^3/uL (1.8-6.8); NEUTROPHILS % (AUTO) 77 % (42-75); PLATELET COUNT 247 x10^3/uL (130-400)
[2017-12-22 16:20] LABS: ALBUMIN 3.3 g/dL (3.4-5.0); ANION GAP 5 mmol/L (5-15); CALCIUM 9.2 mg/dL (8.5-10.1); CHLORIDE 109 mmol/L (98-107)
[2017-12-22 16:21] LABS: CREATININE 1.24 mg/dL (0.7-1.3)
[2017-12-22 17:28] LABS: MICROSCOPIC AUTO
[2017-12-22 17:32] LABS: CULTURE INDICATED? YES
[2017-12-22] MEDS ORDERED: OMNIPAQUE 350 MG/ML, 100ML BOTTLE ONE (17:47)
[2017-12-22 19:23] VITALS: BP 121/79
[2017-12-22] MEDS ORDERED: ACETAMINOPHEN 500 MG TABLET ONE (19:29)
[2017-12-22] MEDS ORDERED: ACETAMINOPHEN 500 MG TABLET PO ONE (19:30)
== END 2017-12-22 19:57 | disposition home or self-care (01) ==
LOC: ED 18:10
DX: S22.32XA Fracture of one rib, left side, initial encounter for closed fracture (principal); I10 Essential (primary) hypertension; J44.9 Chronic obstructive pulmonary disease, unspecified; E11.9 Type 2 diabetes mellitus without complications; I48.91 Unspecified atrial fibrillation; Z86.73 Personal history of transient ischemic attack (TIA), and cerebral infarction without residual deficits; Z90.49 Acquired absence of other specified parts of digestive tract; W18.39XA Other fall on same level, initial encounter; Y93.89 Activity, other specified; Y92.098 Other place in other non-institutional residence as the place of occurrence of the external cause; Y99.8 Other external cause status
CPT/HCPCS: 36415; 71260; 74177; 80048; 81001; 82040; 85025; 87086; 99285; Q9967

== ENCOUNTER 2018-01-18 12:31 | Emergency (ER) | payer MEDICARE ==
[~2018-01-18] VITALS: Ht 175.3 cm; Wt 100.0 kg
[~2018-01-18 12:31] MED LIST changes: -AMLO10TA2 PO; +AMLO10TA6 PO; -AMLO5TAB2 PO; +AMLO5TAB7 PO; -SENN1TAB7 PO; +SENN1TAB8 PO
[2018-01-18 13:21] LABS: BASOPHILS # (AUTO) 0.07 x10^3/uL (0-0.1); BASOPHILS % (AUTO) 1 % (0-1); EOSINOPHILS # (AUTO) 0.33 x10^3/uL (0-0.4); EOSINOPHILS % (AUTO) 5 % (1-7); LYMPHOCYTES # (AUTO) 1.48 x10^3/uL (1-3.4); LYMPHOCYTES % (AUTO) 21 % (22-44); MD NO; MEAN CORPUSCULAR HEMOGLOBIN 30.1 pg (27.5-34.5); MEAN CORPUSCULAR HGB CONC 33.9 g/dL (33.2-36.2); MEAN CORPUSCULAR VOLUME 88.7 fL (81-97); MONOCYTES # (AUTO) 0.58 x10^3/uL (0.2-0.8); MONOCYTES % (AUTO) 8 % (2-9); NEUTROPHILS # (AUTO) 4.62 x10^3/uL (1.8-6.8); NEUTROPHILS % (AUTO) 65 % (42-75); PLATELET COUNT 270 x10^3/uL (130-400); RED BLOOD COUNT 4.88 x10^6/uL (4.38-5.82); RED CELL DISTRIBUTION WIDTH 15.3 % (9.4-14.8)
[2018-01-18 13:29] LABS: ALANINE AMINOTRANSFERASE 12 U/L (12-78); ANION GAP 4 mmol/L (5-15); CALCIUM 8.7 mg/dL (8.5-10.1); CHLORIDE 109 mmol/L (98-107); CREATININE 1.02 mg/dL (0.7-1.3)
[2018-01-18 13:31] LABS: ALKALINE PHOSPHATASE 131 U/L (45-117); BILIRUBIN,TOTAL 0.4 mg/dL (0.2-1.0); TOTAL PROTEIN 7.5 g/dL (6.4-8.2)
[2018-01-18 13:50] LABS: CULTURE INDICATED? NO; MICROSCOPIC NOT IND
[2018-01-18 16:05] VITALS: BP 146/73
== END 2018-01-18 16:39 | disposition home or self-care (01) ==
LOC: ED 13:16
DX: S46.011A Strain of muscle(s) and tendon(s) of the rotator cuff of right shoulder, initial encounter (principal); R42 Dizziness and giddiness; J44.9 Chronic obstructive pulmonary disease, unspecified; I48.91 Unspecified atrial fibrillation; I10 Essential (primary) hypertension; E11.9 Type 2 diabetes mellitus without complications; F17.210 Nicotine dependence, cigarettes, uncomplicated; Z90.49 Acquired absence of other specified parts of digestive tract; Z86.73 Personal history of transient ischemic attack (TIA), and cerebral infarction without residual deficits; Y93.89 Activity, other specified; Y92.008 Other place in unspecified non-institutional (private) residence as the place of occurrence of the external cause; Y99.8 Other external cause status; W01.0XXA Fall on same level from slipping, tripping and stumbling without subsequent striking against object, initial encounter
CPT/HCPCS: 36415; 70551; 80053; 81003; 85025; 93005; 99285

== ENCOUNTER 2018-04-21 23:32 | Inpatient (IN) | payer MEDICARE ==
[~2018-04-21] VITALS: Ht 175.3 cm; Wt 108.2 kg
[~2018-04-21 23:32] MED LIST changes: +AMLO-150 PO; -AMLO5TAB7 PO
[2018-04-21] MEDS ORDERED: ASPIRIN 81 MG TABLET CHEW ONE (23:59)
[2018-04-22] MEDS ORDERED: ASPIRIN 81 MG TABLET CHEW PO ONE
[2018-04-22 00:17] LABS: BASOPHILS # (AUTO) 0.01 x10^3/uL (0-0.1); BASOPHILS % (AUTO) 0 % (0-1); EOSINOPHILS # (AUTO) 0.04 x10^3/uL (0-0.4); EOSINOPHILS % (AUTO) 0 % (1-7); LYMPHOCYTES # (AUTO) 0.93 x10^3/uL (1-3.4); LYMPHOCYTES % (AUTO) 8 % (22-44); MD NO; MEAN CORPUSCULAR HEMOGLOBIN 32.9 pg (27.5-34.5); MEAN CORPUSCULAR HGB CONC 35.2 g/dL (33.2-36.2); MEAN CORPUSCULAR VOLUME 93.5 fL (81-97); MONOCYTES # (AUTO) 0.85 x10^3/uL (0.2-0.8); MONOCYTES % (AUTO) 7 % (2-9); NEUTROPHILS % (AUTO) 85 % (42-75); PLATELET COUNT 226 x10^3/uL (130-400); RED BLOOD COUNT 4.47 x10^6/uL (4.38-5.82); RED CELL DISTRIBUTION WIDTH 15.9 % (9.4-14.8)
[2018-04-22 00:18] LABS: CHLORIDE 107 mmol/L (98-107)
[2018-04-22 00:20] LABS: ALBUMIN 3.2 g/dL (3.4-5.0); ANION GAP 7 mmol/L (5-15); CALCIUM 8.3 mg/dL (8.5-10.1)
[2018-04-22 00:21] LABS: INTERNATIONAL NORMALIZED RATIO 1.06 (0.93-1.1); PROTHROMBIN TIME 11.2 Seconds (9.6-11.5)
[2018-04-22 00:24] LABS: CREATININE 1.28 mg/dL (0.7-1.3)
[2018-04-22] MEDS ORDERED: AZITHROMYCIN 500 MG TABLET PO ONE (01:00)
[2018-04-22] MEDS ORDERED: CEFTRIAXONE 1,000 MG IV ONE (01:00)
[2018-04-22] MEDS ORDERED: CEFTRIAXONE PMX 1GM/50ML 50 ML IV ONE (01:00)
[2018-04-22 01:12] LABS: TROPONIN I < 0.015 ng/mL (0.000-0.045)
[2018-04-22] MEDS ORDERED: AMLO-150 PO (01:56)
[2018-04-22 03:17] VITALS: BP 130/76
[2018-04-22] MEDS ORDERED: SODIUM CHLORIDE 0.9% 1,000 ML IV SCH (04:18)
[2018-04-22] MEDS ORDERED: ONDANSETRON 2MG/ML, 2ML IVPush PRN ×2 (04:30→21:30)
[2018-04-22] MEDS ORDERED: HYDROcodone/APAP 5/325 TABLET PO PRN ×2 (04:30→21:30)
[2018-04-22] MEDS ORDERED: ACETAMINOPHEN 325 MG TABLET PO PRN (04:30)
[2018-04-22] MEDS ORDERED: GUAIFENESIN/COD200MG-20MG/10ML LIQUID PO PRN ×2 (04:30→21:30)
[2018-04-22] MEDS ORDERED: DOCUSATE 100 MG CAPSULE PO PRN ×2 (04:30→21:30)
[2018-04-22] MEDS ORDERED: POLYETHYLENE GLYCOL 17 GM PACKET PO PRN ×2 (04:30→21:30)
[2018-04-22] MEDS: CEFTRIAXONE PMX 1GM/50ML 50 ML IV SCH (04:45)
[2018-04-22] MEDS: AZITHROMYCIN 500 MG in SODIUM CHLORIDE 0.9% 250 ML IV SCH (05:29)
[2018-04-22 07:30] VITALS: BP 122/66
[2018-04-22] MEDS ORDERED: AMLODIPINE 5 MG TABLET PO SCH (09:00)
[2018-04-22] MEDS ORDERED: FUROSEMIDE 40 MG TABLET PO SCH (09:00)
[2018-04-22] MEDS ORDERED: AMIODARONE 200 MG TABLET PO SCH (09:00)
[2018-04-22] MEDS ORDERED: SENNA/DOCUSATE TABLET PO SCH (09:00)
[2018-04-22] MEDS ORDERED: APIXABAN 5 MG TABLET PO SCH (09:00)
[2018-04-22] MEDS ORDERED: METOPROLOL TARTRATE 25 MG TABLET PO SCH (09:00)
[2018-04-22 13:35] VITALS: BP 105/66
[2018-04-22 20:01] VITALS: BP 113/75
[2018-04-22] MEDS ORDERED: CALCIUM CARBONATE 500 MG TAB.CHEW PO PRN (21:30)
[2018-04-22] MEDS ORDERED: APIXABAN 5 MG TABLET ONE (21:35)
[2018-04-22] MEDS: AMLODIPINE 5 MG TABLET PO SCH (21:54)
[2018-04-22] MEDS: APIXABAN 5 MG TABLET PO SCH (21:54)
[2018-04-22] MEDS: METOPROLOL TARTRATE 25 MG TABLET PO SCH (21:54)
[2018-04-23] MEDS: ACETAMINOPHEN 325 MG TABLET PO PRN ×2 (02:33→21:52)
[2018-04-23 03:10] VITALS: BP 107/67
[2018-04-23] MEDS: CEFTRIAXONE PMX 1GM/50ML 50 ML IV SCH (05:04)
[2018-04-23] MEDS: AZITHROMYCIN 500 MG in SODIUM CHLORIDE 0.9% 250 ML IV SCH (05:21)
[2018-04-23 06:00] VITALS: BP 104/59
[2018-04-23 07:10] VITALS: BP 105/60
[2018-04-23 08:16] LABS: ANION GAP 7 mmol/L (5-15); CALCIUM 7.4 mg/dL (8.5-10.1); CHLORIDE 109 mmol/L (98-107); CREATININE 1.01 mg/dL (0.7-1.3)
[2018-04-23 08:29] LABS: MEAN CORPUSCULAR HEMOGLOBIN 32.8 pg (27.5-34.5); MEAN CORPUSCULAR HGB CONC 34.5 g/dL (33.2-36.2); MEAN CORPUSCULAR VOLUME 95.1 fL (81-97); MEAN PLATELET VOLUME 8.8 fL (7.4-10.4); PLATELET COUNT 181 x10^3/uL (130-400); RED BLOOD COUNT 3.77 x10^6/uL (4.38-5.82); RED CELL DISTRIBUTION WIDTH 15.4 % (9.4-14.8)
[2018-04-23 09:10] LABS: BASOPHILS # (AUTO) 0.06 x10^3/uL (0-0.1); BASOPHILS % (AUTO) 1 % (0-1); EOSINOPHILS # (AUTO) 0.28 x10^3/uL (0-0.4); EOSINOPHILS % (AUTO) 2 % (1-7); LYMPHOCYTES # (AUTO) 1.22 x10^3/uL (1-3.4); LYMPHOCYTES % (AUTO) 10 % (22-44); MD SCAN; MONOCYTES # (AUTO) 1.33 x10^3/uL (0.2-0.8); MONOCYTES % (AUTO) 11 % (2-9); NEUTROPHILS # (AUTO) 9.75 x10^3/uL (1.8-6.8); NEUTROPHILS % (AUTO) 77 % (42-75)
[2018-04-23 09:38] VITALS: BP 110/64
[2018-04-23] MEDS: APIXABAN 5 MG TABLET PO SCH ×2 (09:43→21:49)
[2018-04-23] MEDS: AMLODIPINE 5 MG TABLET PO SCH ×2 (09:43→09:55)
[2018-04-23] MEDS: FUROSEMIDE 40 MG TABLET PO SCH ×2 (09:43→09:55)
[2018-04-23] MEDS: AMIODARONE 200 MG TABLET PO SCH (09:44)
[2018-04-23] MEDS: SENNA/DOCUSATE TABLET PO SCH (09:45)
[2018-04-23] MEDS: METOPROLOL TARTRATE 25 MG TABLET PO SCH ×4 (09:45→21:52)
[2018-04-23 13:00] VITALS: BP 99/55
[2018-04-23 21:47] VITALS: BP 128/69
[2018-04-24 00:40] VITALS: BP 110/64
[2018-04-24] MEDS: CEFTRIAXONE PMX 1GM/50ML 50 ML IV SCH (03:59)
[2018-04-24] MEDS: ACETAMINOPHEN 325 MG TABLET PO PRN (04:15)
[2018-04-24] MEDS: AZITHROMYCIN 500 MG in SODIUM CHLORIDE 0.9% 250 ML IV SCH (05:06)
[2018-04-24 06:08] LABS: BASOPHILS # (AUTO) 0.03 x10^3/uL (0-0.1); BASOPHILS % (AUTO) 0 % (0-1); EOSINOPHILS # (AUTO) 0.22 x10^3/uL (0-0.4); EOSINOPHILS % (AUTO) 2 % (1-7); LYMPHOCYTES # (AUTO) 1.14 x10^3/uL (1-3.4); LYMPHOCYTES % (AUTO) 13 % (22-44); MD NO; MEAN CORPUSCULAR HEMOGLOBIN 32.2 pg (27.5-34.5); MEAN CORPUSCULAR HGB CONC 34.1 g/dL (33.2-36.2); MEAN CORPUSCULAR VOLUME 94.4 fL (81-97); MEAN PLATELET VOLUME 8.8 fL (7.4-10.4); MONOCYTES # (AUTO) 1.02 x10^3/uL (0.2-0.8); MONOCYTES % (AUTO) 11 % (2-9); NEUTROPHILS # (AUTO) 6.62 x10^3/uL (1.8-6.8); NEUTROPHILS % (AUTO) 73 % (42-75); PLATELET COUNT 174 x10^3/uL (130-400); RED BLOOD COUNT 3.74 x10^6/uL (4.38-5.82); RED CELL DISTRIBUTION WIDTH 15.4 % (9.4-14.8)
[2018-04-24 06:13] LABS: ANION GAP 6 mmol/L (5-15); CALCIUM 7.3 mg/dL (8.5-10.1); CHLORIDE 110 mmol/L (98-107); CREATININE 0.88 mg/dL (0.7-1.3)
[2018-04-24 07:23] VITALS: BP 127/63
[2018-04-24] MEDS: SENNA/DOCUSATE TABLET PO SCH (09:03)
[2018-04-24] MEDS: AMIODARONE 200 MG TABLET PO SCH (09:04)
[2018-04-24] MEDS: METOPROLOL TARTRATE 25 MG TABLET PO SCH ×2 (09:04→20:20)
[2018-04-24] MEDS: APIXABAN 5 MG TABLET PO SCH ×2 (09:04→20:20)
[2018-04-24] MEDS: FUROSEMIDE 40 MG TABLET PO SCH (09:04)
[2018-04-24 12:33] VITALS: BP 128/70
[2018-04-24 19:27] VITALS: BP 148/71
[2018-04-25 01:20] VITALS: BP 133/85
[2018-04-25] MEDS: CEFTRIAXONE PMX 1GM/50ML 50 ML IV SCH (04:34)
[2018-04-25] MEDS: AZITHROMYCIN 500 MG in SODIUM CHLORIDE 0.9% 250 ML IV SCH (05:12)
[2018-04-25 07:08] VITALS: BP 126/61
[2018-04-25] MEDS: FUROSEMIDE 40 MG TABLET PO SCH (08:54)
[2018-04-25] MEDS: APIXABAN 5 MG TABLET PO SCH ×2 (08:54→20:34)
[2018-04-25] MEDS: AMIODARONE 200 MG TABLET PO SCH (08:54)
[2018-04-25] MEDS: SENNA/DOCUSATE TABLET PO SCH (08:54)
[2018-04-25] MEDS: METOPROLOL TARTRATE 25 MG TABLET PO SCH ×2 (08:55→20:34)
[2018-04-25 12:05] VITALS: BP 121/64
[2018-04-25 19:31] VITALS: BP 112/68
[2018-04-25] MEDS: ACETAMINOPHEN 325 MG TABLET PO PRN (22:13)
[2018-04-26 01:16] VITALS: BP 117/69
[2018-04-26] MEDS: CEFTRIAXONE PMX 1GM/50ML 50 ML IV SCH (04:21)
[2018-04-26] MEDS: AZITHROMYCIN 500 MG in SODIUM CHLORIDE 0.9% 250 ML IV SCH (05:15)
[2018-04-26 08:30] VITALS: BP 132/69
[2018-04-26] MEDS: AMIODARONE 200 MG TABLET PO SCH (09:57)
[2018-04-26] MEDS: APIXABAN 5 MG TABLET PO SCH (09:57)
[2018-04-26] MEDS: METOPROLOL TARTRATE 25 MG TABLET PO SCH (09:58)
[2018-04-26] MEDS: FUROSEMIDE 40 MG TABLET PO SCH (09:58)
[2018-04-26] MEDS: SENNA/DOCUSATE TABLET PO SCH (09:58)
[2018-04-26] MEDS ORDERED: CEFD300C37 PO (10:21)
[2018-04-26] MEDS ORDERED: AZIT500T5 PO (10:21)
[2018-04-26] MEDS ORDERED: APIX5TAB PO (10:21)
== END 2018-04-26 15:14 | DRG 871 ==
LOC: ED 23:57 → 5SO 04-22 01:40 → UNDODISIN 04-22 18:49 → 3NE 04-23 07:02
PROVIDERS: ADMIT Family Medicine; ATTEND Family Medicine
DX: A41.9 Sepsis, unspecified organism (principal); J18.9 Pneumonia, unspecified organism; E43 Unspecified severe protein-calorie malnutrition; J44.0 Chronic obstructive pulmonary disease with (acute) lower respiratory infection; E11.51 Type 2 diabetes mellitus with diabetic peripheral angiopathy without gangrene; I48.91 Unspecified atrial fibrillation; I11.0 Hypertensive heart disease with heart failure; I50.9 Heart failure, unspecified; Z66 Do not resuscitate; R29.6 Repeated falls; R47.81 Slurred speech; S09.90XA Unspecified injury of head, initial encounter; W19.XXXA Unspecified fall, initial encounter; R47.9 Unspecified speech disturbances; R53.81 Other malaise; I95.9 Hypotension, unspecified; Z90.49 Acquired absence of other specified parts of digestive tract; Z87.891 Personal history of nicotine dependence; Z86.73 Personal history of transient ischemic attack (TIA), and cerebral infarction without residual deficits; Z91.81 History of falling; Z68.35 Body mass index [BMI] 35.0-35.9, adult; Z82.49 Family history of ischemic heart disease and other diseases of the circulatory system; Z86.72 Personal history of thrombophlebitis; Z87.01 Personal history of pneumonia (recurrent); Z72.89 Other problems related to lifestyle; Z80.9 Family history of malignant neoplasm, unspecified
CPT/HCPCS: 36415; 70450; 71045; 80048; 82040; 83605; 83880; 84145; 84484; 85025; 85610; 87040; 93005; 93970; 96365; 99285; G0378; J0456; J0696; J7030; J7050